=== PATIENT | female | born 1970 | race Caucasian/White ===

== ENCOUNTER 2019-10-06 04:45 | Emergency (ER) | payer MEDICAID, MEDICARE, OTHER ==
[2019-10-06 04:51] VITALS: BP 81/45; PULSE 55
--- NOTE | 2019-10-06 04:56 | EDM.PDOC ---
ED HPI GENERAL MEDICAL PROBLEM - General Chief Complaint: Behavioral/Psych Stated Complaint: AMBULANCE Time Seen by Provider: 10/06/19 04:45 Source of Information: Reports: EMS History Limitations: Reports: Altered Mental Status - History of Present Illness INITIAL COMMENTS - FREE TEXT/NARRATIVE: This 49 yo female patient was brought to the ED by [facility] with [facility] ( intercept) due to altered mentation. The patient arrived with a C-collar in place and on a LSB. EMS reports the patient has been unresponsive throughout their encounter except for a moan only one time during the transport. [place] law enforcement reported locating the patient with about 12 jello shots in her garbage. Law enforcement was called to the patient's residence due to a welfare check. The patient had been texting someone with suicidal thoughts and then did not answer the telephone. The patient has had a history of an eye surgery in the past. The patient was given 4 mg of Narcan by EMS with no changes. Onset: Unknown/Unsure Duration: Constant Severity: Severe Improves with: Reports: None Worsens with: Reports: None Context: Reports: Other Associated Symptoms: Reports: No Other Symptoms - Related Data Allergies Allergy/AdvReac Type Severity Reaction Status Date / Time No Known Allergies Allergy Verified 08/29/16 06:20 Home Meds: Home Meds QUEtiapine [SEROquel] 200 mg PO BEDTIME 04/26/14 [History] rOPINIRole [Requip] 2 mg PO TID 04/26/14 [History] traMADol HCl [Tramadol HCl] 50 mg PO TID PRN 04/26/14 [History] Acetaminophen [Acetaminophen Extra Strength] 500 mg PO Q6HR PRN 12/20/14 [ History] Propranolol [Inderal] 80 mg PO BEDTIME 12/20/14 [History] Temazepam [Restoril] 15 mg PO BEDTIME 12/20/14 [History] diphenhydrAMINE HCL [Benadryl] 50 mg PO Q6HR PRN 12/20/14 [History] Meloxicam 1 tab PO DAILY 08/30/15 [History] tiZANidine [Zanaflex] 1 tab PO ASDIRECTED PRN 08/30/15 [History] Ibuprofen 400 mg PO DAILY PRN 08/29/16 [History] Ketorolac Tromethamine 10 mg PO Q8HR PRN 08/29/16 [History] Amphetamine [Adzenys Xr-Odt] 30 mg PO DAILY 10/06/19 [History] Fluticasone Furoate [Arnuity Ellipta] 50 mcg INH ASDIRECTED 10/06/19 [History] Gabapentin [Neurontin] 300 mg PO TID 10/06/19 [History] Ondansetron [Zofran ODT] 4 mg SL Q6H PRN 10/06/19 [History] atoMOXetine [Strattera] 18 mg PO DAILY 10/06/19 [History] Past Medical History 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 Other Oncologic History: pre cancerous colon polyps. - Past Surgical History Other GI Surgeries/Procedures: Hx of IBS. post clostridium difficile infection( C-Diff). High-risk family Hx of colon cancer (both mother & father) Other Musculoskeletal Surgeries/Procedures:: Bilateral carpel tunnel release. Social & Family History - Family History Family Medical History: Noncontributory - Caffeine Use Caffeine Use: Reports: Coffee, Soda - Living Situation & Occupation Living situation: Reports: with Family ED ROS GENERAL - Review of Systems Review Of Systems: Comprehensive ROS is negative, except as noted in HPI. - Physical Exam Exam: See Below Exam Limited By: No Limitations General Appearance: Obtunded, Severe Distress Eye Exam: Bilateral Eye: Other (Pupils were fixed (right at about 4 mm, left at 2 mm)) Ears: Normal External Exam, Normal Canal, Hearing Grossly Normal, Normal TMs Nose: Normal Inspection, Normal Mucosa, No Blood Throat/Mouth: Normal Inspection, Normal Lips, Normal Teeth, Normal Gums, Normal Oropharynx, Normal Voice, No Airway Compromise Head Exam: Atraumatic, Normocephalic Respiratory/Chest: No Respiratory Distress, Lungs Clear, Normal Breath Sounds, No Accessory Muscle Use, Chest Non-Tender Cardiovascular: Normal Peripheral Pulses, Regular Rate, Rhythm, No Edema, No Gallop, No JVD, No Murmur, No Rub GI/Abdominal: Normal Bowel Sounds, Soft, Non-Tender, No Organomegaly, No Distention, No Abnormal Bruit, No Mass (Female) Exam: Deferred Rectal (Female) Exam: Deferred Neuro Exam (Abbreviated): Unresponsive Back Exam: Normal Inspection Extremities: Normal Inspection, No Pedal Edema Skin Exam: Warm, Dry, Intact, Normal Color, No Rash Course - Vital Signs Last Recorded V/S: Last Vital Signs Temp 35.4 C L 10/06/19 04:50 Pulse 55 L 10/06/19 04:50 Resp 15 10/06/19 04:50 BP 81/45 L 10/06/19 04:50 Pulse Ox 95 10/06/19 04:50 - Orders/Labs/Meds Orders: Active Orders 24 hr Category Date Time Status EKG Documentation Completion [RC] STAT Care 10/06/19 04:48 Active Cervical Spine wo Cont [CT] Urgent Exams 10/06/19 04:48 Ordered Head wo Cont [CT] Urgent Exams 10/06/19 04:48 Ordered ACETAMINOPHEN [CHEM] Stat Lab 10/06/19 04:56 Received AMYLASE [CHEM] Stat Lab 10/06/19 04:56 Received CBC WITH AUTO DIFF [HEME] Stat Lab 10/06/19 04:56 Received COMPREHENSIVE METABOLIC PN,CMP [CHEM] Stat Lab 10/06/19 04:56 Received CULTURE BLOOD [BC] Stat Lab 10/06/19 04:56 Results ETHANOL BLOOD MEDICAL [CHEM] Stat Lab 10/06/19 04:56 Received LACTIC ACID [CHEM] Stat Lab 10/06/19 04:56 Received LIPASE [CHEM] Stat Lab 10/06/19 04:56 Received MAGNESIUM [CHEM] Stat Lab 10/06/19 04:56 Received MANUAL DIFFERENTIAL QA/NC [HEME] Stat Lab 10/06/19 04:56 Results SALICYLATE [CHEM] Stat Lab 10/06/19 04:56 Received TROPONIN I [CHEM] Stat Lab 10/06/19 04:56 Received Labs: Laboratory Tests 10/06/19 10/06/19 10/06/19 Range/Units 04:56 04:58 04:58 WBC 9.5 (5.0-10.0) 10^3/uL RBC 4.14 L (4.2-5.4) 10^6/uL Hgb 13.0 (12.0-16.0) g/dL Hct 38.6 (37.0-47.0) % MCV 93.2 (80-100) fL MCH 31.4 (27.0-34.0) pg MCHC 33.7 (33.0-35.0) g/dL Plt Count 372 (150-450) 10^3/uL Neut % (Auto) 65.8 (42.2-75.2) % Lymph % (Auto) 25.6 (20.5-50.1) % [place]y % (Auto) 7.6 (2-8) % Eos % (Auto) 0.8 L (1.0-3.0) % Baso % (Auto) 0.2 (0.0-1.0) % Add Manual Diff Yes Urine Color Yellow (YELLOW) Urine Appearance Clear (CLEAR) Urine pH 6.0 (5.0-9.0) Ur Specific [place] >= 1.030 (1.005-1.030) Urine Protein 30 H (NEGATIVE) Urine Glucose (UA) Negative (NEGATIVE) Urine Ketones Trace H (NEGATIVE) Urine Occult Blood Negative (NEGATIVE) Urine Nitrite Negative (NEGATIVE) Urine Bilirubin Negative (NEGATIVE) Urine Urobilinogen 0.2 (0.2-1.0) mg/dL Ur Leukocyte Esterase Negative (NEGATIVE) Urine RBC Not seen /HPF Urine WBC 0-5 (0-5/HPF) /HPF Ur Epithelial Cells Moderate H (NOT SEEN) /HPF Amorphous Sediment Few (NOT SEEN) /HPF Urine Bacteria Few (0-FEW/HPF) /HPF Granular Casts (Auto) Few Fine Granular Casts Occasional H (NOT SEEN) /LPF Urine Mucus Rare (NOT SEEN) /LPF Urine Opiates Screen Negative (NEGATIVE) Ur Oxycodone Screen Negative (NEGATIVE) Urine Methadone Screen Negative (NEGATIVE) Ur Barbiturates Screen Negative (NEGATIVE) U Tricyclic Antidepress Negative (NEGATIVE) Ur Phencyclidine Scrn Negative (NEGATIVE) Ur Amphetamine Screen Negative (NEGATIVE) U Methamphetamines Scrn Positive H (NEGATIVE) Urine MDMA Screen Negative (NEGATIVE) U Benzodiazepines Scrn Positive H (NEGATIVE) Urine Cocaine Screen Negative (NEGATIVE) U Marijuana (THC) Screen Negative (NEGATIVE) - Radiology Interpretation Free Text/Narrative:: PROCEDURE INFORMATION: Exam: CT Head Without Contrast Exam date and time: 10/06/2019 5:10 AM Age: 49 years old Clinical indication: Altered mental status/memory loss; Confusion or disorientation; Additional info: Patient unresponsive TECHNIQUE: Imaging protocol: Computed tomography of the head without contrast. Radiation optimization: All CT scans at this facility use at least one of these dose optimization techniques: automated exposure control; mA and/or kV adjustment per patient size (includes targeted exams where dose is matched to clinical indication); or iterative reconstruction. Other technique: STROKE PROTOCOL was implemented. COMPARISON: No relevant prior studies available. FINDINGS: Brain: Normal. No hemorrhage. Unremarkable white matter. No mass effect. Ventricles: Normal. No ventriculomegaly. Bones/joints: Unremarkable. No acute fracture. Sinuses: Visualized sinuses are unremarkable. No fluid levels. Mastoid air cells: Visualized mastoid air cells are well aerated. Soft tissues: Unremarkable. IMPRESSION: No acute intracranial abnormality. ASSESSMENT: ASPECTS ([place] Stroke Program Early CT Score) is 10. Thank you for allowing us to participate in the care of your patient. Dictated and Authenticated by: Jessica Chen MD 10/06/2019 5:29 AM Central Time ([place] & [place]) PROCEDURE INFORMATION: Exam: CT Cervical Spine Without Contrast Exam date and time: 10/06/2019 5:10 AM Age: 49 years old Clinical indication: Other: Altered mentation; Additional info: Patient unresponsive TECHNIQUE: Imaging protocol: Computed tomography images of the cervical spine without contrast. Radiation optimization: All CT scans at this facility use at least one of these dose optimization techniques: automated exposure control; mA and/or kV adjustment per patient size (includes targeted exams where dose is matched to clinical indication); or iterative reconstruction. COMPARISON: CT Cervical Spine wo Cont 08/30/2015 6:57 PM FINDINGS: Vertebrae: Reversal of the normal cervical lordosis. Soft tissues: Unremarkable. Larynx: Airway terminates just above the tip of the epiglottis. Vasculature: Punctate gas identified in the right subclavian vein, presumed to be iatrogenic. Lungs: Centrilobular and paraseptal emphysema. Pleural parenchymal scarring at the lung apices bilaterally. Other findings: Multilevel changes of degenerative disc disease and facet arthrosis. IMPRESSION: No acute cervical spine abnormality. Multilevel changes of degenerative disc disease and facet arthrosis. Thank you for allowing us to participate in the care of your patient. Dictated and Authenticated by: Jessica Chen MD 10/06/2019 5:34 AM Central Time ([place] & [place]) - Re-Assessments/Exams Free Text/Narrative Re-Assessment/Exam: 10/06/19 05:58 The patient woke up after CT to report that she took "a couple" Tizanidine (4 mg ), 3-4 Gabapentin (300 mg) and about 2 Tramadol (50 mg). The patient did not know what time she took the medications. The patient also admitted to doing jello shots this evening. 10/06/19 06:05 Departure - Departure Time of Disposition: 06:06 Disposition: DC/Tfer to Acute Hospital 02 Condition: Fair Clinical Impression: Alcohol use Suicidal overdose Qualifiers: Encounter type: initial encounter Qualified Code(s): T50.902A - Poisoning by unspecified drugs, medicaments and biological substances, intentional self-harm , initial encounter Altered mental status Qualifiers: Altered mental status type: delirium Qualified Code(s): R41.0 - Disorientation , unspecified - Discharge Information *PRESCRIPTION DRUG MONITORING PROGRAM REVIEWED*: Not Applicable *COPY OF PRESCRIPTION DRUG MONITORING REPORT IN PATIENT AMRIT: Not Applicable Forms: Interfacility Transfer EMTALA Care Plan Goals: Discussed the history, examination, lab, CT, EKG and treatments with Dr. Raya. Dr. Raya accepted the patient for continued evaluation and further management as an inpatient at [facility] in [place]. The patient will be transported by [facility]. Sepsis Event Note - Focused Exam Vital Signs: Vital Signs Temp Pulse Resp BP Pulse Ox 10/06/19 04:50 35.4 C L 55 L 15 81/45 L 95 Date Exam was Performed: 10/06/19 Time Exam was Performed: 05:31 - My Orders Last 24 Hours: My Active Orders 10/06/19 04:48 EKG Documentation Completion [RC] STAT Cervical Spine wo Cont [CT] Urgent Head wo Cont [CT] Urgent 10/06/19 04:56 ACETAMINOPHEN [CHEM] Stat AMYLASE [CHEM] Stat CBC WITH AUTO DIFF [HEME] Stat COMPREHENSIVE METABOLIC PN,CMP [CHEM] Stat CULTURE BLOOD [BC] Stat ETHANOL BLOOD MEDICAL [CHEM] Stat LACTIC ACID [CHEM] Stat LIPASE [CHEM] Stat MAGNESIUM [CHEM] Stat MANUAL DIFFERENTIAL QA/NC [HEME] Stat SALICYLATE [CHEM] Stat TROPONIN I [CHEM] Stat - Assessment/Plan Last 24 Hours: My Active Orders 10/06/19 04:48 EKG Documentation Completion [RC] STAT Cervical Spine wo Cont [CT] Urgent Head wo Cont [CT] Urgent 10/06/19 04:56 ACETAMINOPHEN [CHEM] Stat AMYLASE [CHEM] Stat CBC WITH AUTO DIFF [HEME] Stat COMPREHENSIVE METABOLIC PN,CMP [CHEM] Stat CULTURE BLOOD [BC] Stat ETHANOL BLOOD MEDICAL [CHEM] Stat LACTIC ACID [CHEM] Stat LIPASE [CHEM] Stat MAGNESIUM [CHEM] Stat MANUAL DIFFERENTIAL QA/NC [HEME] Stat SALICYLATE [CHEM] Stat TROPONIN I [CHEM] Stat
[2019-10-06 05:29] LABS: ACETAMINOPHEN 3 ug/mL (10-30 (Therapeutic)); ANION GAP 17.4 mEq/L (7-13); CHLORIDE,CL 108 mmol/L (98-107); SODIUM,NA 145 mmol/L (136-145)
== END 2019-10-06 06:53 ==
LOC: DL.ED 04:45
DX: T62.8X2A Toxic effect of other specified noxious substances eaten as food, intentional self-harm, initial encounter (principal); R41.82 Altered mental status, unspecified; Z72.89 Other problems related to lifestyle; D68.0 Von Willebrand disease; Z79.899 Other long term (current) drug therapy
CPT/HCPCS: 36415; 51702; 70450; 72125; 80053; 80305-QW; 80307; 81001; 82150; 83605; 83690; 83735; 84484; 85025; 87040; 93005; 99285-25

== ENCOUNTER 2019-10-06 08:09 | Emergency (ER) | payer MEDICARE, OTHER ==
--- NOTE | 2019-10-06 08:14 | EDM.PDOCBH ---
ED HPI GENERAL MEDICAL PROBLEM - General Chief Complaint: Behavioral/Psych Stated Complaint: AMBULANCE Time Seen by Provider: 10/06/19 08:11 Source of Information: Reports: Patient, EMS, Old Records, RN, RN Notes Reviewed History Limitations: Reports: Uncooperative - History of Present Illness INITIAL COMMENTS - FREE TEXT/NARRATIVE: [facility] by [facility] with report that pt cannot be booked into detox because she is obtunded and will not wake up. Pt was discharged from the ER just prior to 0700HR shift change and was taken to [facility] for detox. She was to be transferred to [facility] to Dr. Raya, but became combative and was taken to [facility]. Pt will not answer any questions. She is obtunded, but wakes at time and moves around in the bed. She has asked for a glass of water, but otherwise will not cooperate. Remains very drowsy. No response to Narcan or Flumazenil. Onset: Unknown/Unsure - Related Data Allergies Allergy/AdvReac Type Severity Reaction Status Date / Time No Known Allergies Allergy Verified 08/29/16 06:20 Home Meds: Home Meds QUEtiapine [SEROquel] 200 mg PO BEDTIME 04/26/14 [History] rOPINIRole [Requip] 2 mg PO TID 04/26/14 [History] traMADol HCl [Tramadol HCl] 50 mg PO TID PRN 04/26/14 [History] Acetaminophen [Acetaminophen Extra Strength] 500 mg PO Q6HR PRN 12/20/14 [ History] Propranolol [Inderal] 80 mg PO BEDTIME 12/20/14 [History] Temazepam [Restoril] 15 mg PO BEDTIME 12/20/14 [History] diphenhydrAMINE HCL [Benadryl] 50 mg PO Q6HR PRN 12/20/14 [History] Meloxicam 1 tab PO DAILY 08/30/15 [History] tiZANidine [Zanaflex] 1 tab PO ASDIRECTED PRN 08/30/15 [History] Ibuprofen 400 mg PO DAILY PRN 08/29/16 [History] Ketorolac Tromethamine 10 mg PO Q8HR PRN 08/29/16 [History] Amphetamine [Adzenys Xr-Odt] 30 mg PO DAILY 10/06/19 [History] Fluticasone Furoate [Arnuity Ellipta] 50 mcg INH ASDIRECTED 10/06/19 [History] Gabapentin [Neurontin] 300 mg PO TID 10/06/19 [History] Ondansetron [Zofran ODT] 4 mg SL Q6H PRN 10/06/19 [History] atoMOXetine [Strattera] 18 mg PO DAILY 10/06/19 [History] Past Medical History 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 Other Oncologic History: pre cancerous colon polyps. - Past Surgical History Other GI Surgeries/Procedures: Hx of IBS. post clostridium difficile infection( C-Diff). High-risk family Hx of colon cancer (both mother & father) Other Musculoskeletal Surgeries/Procedures:: Bilateral carpel tunnel release. Social & Family History - Family History Family Medical History: Noncontributory - Caffeine Use Caffeine Use: Reports: Coffee, Soda - Living Situation & Occupation Living situation: Reports: with Family ED ROS GENERAL - Review of Systems Review Of Systems: Unable To Obtain Reason Not Obtained: unresponsive ED EXAM, BEHAVIORAL HEALTH - Physical Exam Exam: See Below Exam Limited By: Altered Mental Status General Appearance: No Apparent Distress, Obtunded Eye Exam: Bilateral Eye: EOMI, Nystagmus (lateral gaze), PERRL Nose: Normal Inspection, Normal Mucosa, No Blood Throat/Mouth: Normal Inspection, Normal Lips, Normal Voice, No Airway Compromise Head: Atraumatic, Normocephalic Neck: Normal Inspection, Full Range of Motion Respiratory/Chest: No Respiratory Distress, Lungs Clear, No Accessory Muscle Use , Decreased Breath Sounds Cardiovascular: Regular Rate, Rhythm, Bradycardia GI/Abdominal: Normal Bowel Sounds, Soft, Non-Tender Extremities: Normal Inspection Neurological: Other (Sedate, occasionally wakes. Moves all extremities spontaneously. Intermitently follows commands, but not consistently.) Psychiatric: Suicidal Plan, Suicidal Thoughts Skin Exam: Warm, Dry, Intact, Normal color COURSE, BEHAVIORAL HEALTH COMP - Course Vital Signs: Last Vital Signs Temp 95 F L 10/06/19 08:09 Pulse 45 L 10/06/19 08:09 Resp 16 10/06/19 08:09 BP 93/59 L 10/06/19 08:09 Pulse Ox 96 10/06/19 08:09 Orders, Labs, Meds: Active Orders 24 hr Category Date Time Status Blood Glucose Check, Bedside [RC] ONETIME Care 10/06/19 08:19 Active Sodium Chloride 0.9% [Normal Saline] 1,000 ml Med 10/06/19 08:22 Active IV .BOLUS Medication Orders Sodium Chloride (Normal Saline) 1,000 mls @ 999 mls/hr IV .BOLUS ONE Stop: 10/06/19 09:22 Last Admin: 10/06/19 08:24 Dose: 999 mls/hr Laboratory Tests 10/06/19 Range/Units 08:39 POC Glucose 107 H (70-105) mg/dl Medications Generic Name Dose Route Start Last Admin Trade Name Freq PRN Reason Stop Dose Admin Sodium Chloride 1,000 mls @ 999 mls/hr 10/06/19 08:22 10/06/19 08:24 Normal Saline IV 10/06/19 09:22 999 mls/hr .BOLUS ONE Administration Discontinued Medications Generic Name Dose Route Start Last Admin Trade Name Freq PRN Reason Stop Dose Admin Flumazenil 0.2 mg 10/06/19 08:17 10/06/19 08:23 Romazicon IVPUSH 10/06/19 08:18 0.2 mg ONETIME ONE Administration Medical Clearance: 10/06/19 08:45 Pt is obtunded and not medically cleared for discharge. Plan to transfer pt to [facility] for observation until sober and medically cleared for mental health evaluation for suicidal risk. Dr. Mehta has accepted the pt as a direct admit. Plans for round ambulance transfer. Discharge vs Psych Eval/Treatment:: 10/06/19 08:46 Pt was evaluated here in this ER earlier this morning by Roderick KOWALSKI. Arrangements were made to transfer the pt to [facility] with Dr. Raya accepting. However, the pt became combative and was discharged to custody of the police and taken to [facility] to be booked into detox until sober, then was to have a mental health evaluation for suicide risk. The [facility] returned the pt to the ER by ambulance with c/o pt being too obtunded to be processed and booked into the detox unit as they could not wake her up. Departure - Departure Time of Disposition: 08:42 Disposition: DC/Tfer to Acute Hospital 02 Condition: Undetermined Clinical Impression: Alcohol intoxication Qualifiers: Complication of substance-induced condition: with unspecified complication Qualified Code(s): F10.929 - Alcohol use, unspecified with intoxication, unspecified Deliberate medication overdose Qualifiers: Encounter type: initial encounter Qualified Code(s): T50.902A - Poisoning by unspecified drugs, medicaments and biological substances, intentional self-harm , initial encounter Suicidal overdose Qualifiers: Encounter type: initial encounter Qualified Code(s): T50.902A - Poisoning by unspecified drugs, medicaments and biological substances, intentional self-harm , initial encounter Altered mental status Qualifiers: Altered mental status type: somnolence Qualified Code(s): R40.0 - Somnolence - Discharge Information *PRESCRIPTION DRUG MONITORING PROGRAM REVIEWED*: No *COPY OF PRESCRIPTION DRUG MONITORING REPORT IN PATIENT AMRIT: No Forms: ED Department Discharge, Interfacility Transfer EMTALA Sepsis Event Note - Focused Exam Vital Signs: Vital Signs Temp Pulse Resp BP Pulse Ox 10/06/19 08:09 95 F L 45 L 16 93/59 L 96 Date Exam was Performed: 10/06/19 Time Exam was Performed: 08:42 - My Orders Last 24 Hours: My Active Orders 10/06/19 08:19 Blood Glucose Check, Bedside [RC] ONETIME 10/06/19 08:22 Sodium Chloride 0.9% [Normal Saline] 1,000 ml IV .BOLUS - Assessment/Plan Last 24 Hours: My Active Orders 10/06/19 08:19 Blood Glucose Check, Bedside [RC] ONETIME 10/06/19 08:22 Sodium Chloride 0.9% [Normal Saline] 1,000 ml IV .BOLUS
[2019-10-06] MEDS ORDERED: Flumazenil 0.1 MG/ML 5 ML MDV IVPUSH ONE (08:17)
[2019-10-06] MEDS ORDERED: Sodium Chloride 0.9% 1,000 ML IV ONE (08:22)
[2019-10-06 08:28] VITALS: BP 93/59; PULSE 45
== END 2019-10-06 09:35 ==
LOC: DL.ED 08:09
DX: T50.902A Poisoning by unspecified drugs, medicaments and biological substances, intentional self-harm, initial encounter (principal); F10.929 Alcohol use, unspecified with intoxication, unspecified; R41.82 Altered mental status, unspecified; G56.03 Carpal tunnel syndrome, bilateral upper limbs; Z79.899 Other long term (current) drug therapy
CPT/HCPCS: 82962; 96361; 96374; 99285; J3490; J7030

== ENCOUNTER 2024-04-07 05:40 | Day surgery (SDC) | payer MEDICARE, MEDICAID ==
[2024-04-07] MEDS ORDERED: Midazolam 1 MG/ML 2 ML SDV IV ONE (05:41)
[2024-04-07] MEDS ORDERED: fentaNYL 100 MCG/2 ML SDV IV ONE (05:41)
[2024-04-07] MEDS: Dextrose 5%-0.45% NaCl 1,000 ML IV SCH (06:01)
[2024-04-07] MEDS ORDERED: Midazolam 1 MG/ML 2 ML SDV ONE (06:09)
[2024-04-07] MEDS ORDERED: fentaNYL 100 MCG/2 ML SDV ONE (06:10)
[2024-04-07] MEDS: fentaNYL 100 MCG/2 ML SDV IV ONE ×6 (06:33→06:44)
[2024-04-07] MEDS: Midazolam 1 MG/ML 2 ML SDV IV ONE ×10 (06:34→06:50)
[2024-04-07 08:18] VITALS: BP 121/80; PULSE 64
== END 2024-04-07 08:50 | disposition home or self-care (01) ==
LOC: DL.ENDO 05:40
PROVIDERS: ATTEND Internal Medicine Gastroenterology
DX: D12.3 Benign neoplasm of transverse colon (principal); K57.30 Diverticulosis of large intestine without perforation or abscess without bleeding; F32.A Depression, unspecified; F90.9 Attention-deficit hyperactivity disorder, unspecified type; F41.9 Anxiety disorder, unspecified; Z79.899 Other long term (current) drug therapy
CPT/HCPCS: 45385; J2250; J3010; J7799; 88305

== ENCOUNTER 2024-05-16 18:26 | Emergency (ER) | payer MEDICARE, MEDICAID ==
[2024-05-16] MEDS: LORazepam 2 MG/ML SDV ONE (19:45)
[2024-05-16] MEDS: LORazepam 2 MG/ML SDV IM ONE (19:45)
[2024-05-16 20:13] VITALS: BP 128/82; PULSE 83
[2024-05-16 20:18] LABS: MDMA (ECSTASY), URINE NEGATIVE (NEGATIVE); METHADONE,URINE NEGATIVE (NEGATIVE); METHAMPHETAMINES,URINE POSITIVE (NEGATIVE); OPIATES,URINE NEGATIVE (NEGATIVE)
[2024-05-16 20:19] LABS: AMPHETAMINES,URINE POSITIVE (NEGATIVE); BARBITURATES,URINE NEGATIVE (NEGATIVE); BENZODIAZEPINE,URINE POSITIVE (NEGATIVE); OXYCODONE,URINE NEGATIVE (NEGATIVE); PHENCYCLIDINE,URINE NEGATIVE (NEGATIVE); TCA,URINE NEGATIVE (NEGATIVE)
[2024-05-16 20:32] LABS: BASOPHILS PERCENT AUTO 0.1 % (0.0-1.0); EOSINOPHILS PERCENT AUTO 0.3 % (1.0-3.0); HEMATOCRIT 44.9 % (37.0-47.0); HEMOGLOBIN 15.5 g/dL (12.0-16.0); LYMPHOCYTES PERCENT AUTO 16.1 % (20.5-50.1); MEAN CORPUSCULAR HEMOGLOBIN 30.9 pg (27.0-34.0); MEAN CORPUSCULAR HGB CONC 34.5 g/dL (33.0-35.0); MEAN CORPUSCULAR VOLUME 89.6 fL (80-100); MONOCYTES PERCENT AUTO 6.7 % (2-8); NEUTROPHILS PERCENT AUTO 76.8 % (42.2-75.2); PLATELET COUNT,PLT 337 10^3/uL (150-450); RED BLOOD CELL COUNT 5.01 10^6/uL (4.2-5.4); WHITE BLOOD CELL COUNT,WBC 14.7 10^3/uL (5.0-10.0)
[2024-05-16 20:56] LABS: PROTHROMBIN TIME 10.1 SEC (9.0-12.0); PTT,PARTIAL THROMBOPLSTIN TIME 25.7 SEC (22.0-34.0)
[2024-05-16 21:09] LABS: A/G RATIO 1.2; ALANINE AMINOTRANSFERASE,ALT 21 U/L (14-59); ALBUMIN 3.9 g/dL (3.4-5.0); ALKALINE PHOSPHATASE 119 U/L (46-116); ANION GAP 18.1 mEq/L (7-13); ASPARTATE AMNIOTRANSFERASE,AST 20 U/L (15-37); BILIRUBIN TOTAL 0.6 mg/dL (0.2-1.0); BLOOD UREA NITROGEN,BUN 21 mg/dL (7-18); BUN/CREATININE RATIO 23.9 (No establ ref range); CALCIUM 9.6 mg/dL (8.5-10.1); CARBON DIOXIDE,CO2 21 mmol/L (21-32); CHLORIDE,CL 104 mmol/L (98-107); CREATININE 0.88 mg/dL (0.55-1.02); EST CRCL DRUG DOSING (CG) 79.78 mL/min; GLUCOSE RANDOM 97 mg/dL (70-99); POTASSIUM,K 4.1 mmol/L (3.5-5.1); PROTEIN TOTAL,TP 7.2 g/dL (6.4-8.2); SODIUM,NA 139 mmol/L (136-145)
[2024-05-16 21:12] LABS: ESTIMATED GFR 77 mL/min (>=60); ETHANOL BLOOD MEDICAL < 3 mg/dL (0)
== END 2024-05-16 21:41 ==
LOC: DL.ED 18:26
DX: F12.10 Cannabis abuse, uncomplicated (principal); F15.10 Other stimulant abuse, uncomplicated; F41.9 Anxiety disorder, unspecified; I10 Essential (primary) hypertension; F17.210 Nicotine dependence, cigarettes, uncomplicated; Z90.710 Acquired absence of both cervix and uterus; Z88.6 Allergy status to analgesic agent; Z79.899 Other long term (current) drug therapy
CPT/HCPCS: 36415; 71045; 80053; 80305; 80307; 84484; 85025; 85610; 85730; 93005; 96372; 99285; J2060